=== PATIENT | female | born 1980 | race Two or more races ===

== ENCOUNTER 2021-01-02 23:44 | Emergency (ER) | payer OTHER ==
[~2021-01-02] VITALS: Ht 160 cm; Wt 63.6 kg
[2021-01-03 01:15] VITALS: BP 109/81
[2021-01-03 02:03] LABS: COVID AG,FIA SOURCE NASOPHARYNGEAL
== END 2021-01-03 04:00 | disposition home or self-care (01) ==
LOC: EMS 23:48
DX: Z11.1 Encounter for screening for respiratory tuberculosis (principal); Z20.822 Contact with and (suspected) exposure to COVID-19
CPT/HCPCS: 71045; 99284